=== PATIENT | male | born 1965 | race Caucasian/White ===

== ENCOUNTER → 2017-08-12 | Outpatient (CLI) | payer MEDICAID ==
[~2017-08-12] MED LIST: AMIT-108 PO; ATOR40TA69 PO; FENO160T11 PO; LISI-374 PO; LOVAZA1PT PO; METF-411 PO; METF-421 PO; METO-253 PO; METO-257 PO; OMEP-137 PO; SITA100T PO; [UNRECOGNIZED DRUG - OTHER]
[2017-08-12 11:32] LABS: PLATELET COUNT, AUTOMATED 453 K/uL (150-450)
[2017-08-12 11:42] LABS: LDL CHOLESTEROL 68 mg/dl
== END ==
LOC: LAB 11:08
PROVIDERS: ATTEND Nurse Practitioner Psychiatric/Mental Health
DX: E13.65 Other specified diabetes mellitus with hyperglycemia (principal); E78.5 Hyperlipidemia, unspecified; I10 Essential (primary) hypertension
CPT/HCPCS: 36415; 82040; 82247; 82310; 82374; 82435; 82465; 82565; 82947; 83036; 83718; 84075; 84132; 84155; 84295; 84443; 84450; 84460; 84478; 84520; 85025

== ENCOUNTER → 2018-07-26 | Outpatient (CLI) | payer MEDICAID ==
[~2018-07-26] MED LIST changes: -METF-411 PO; -METF-421 PO; +METF-450 PO; +METF-452 PO
[2018-07-26 16:22] LABS: PLATELET COUNT, AUTOMATED 322 K/uL (150-450)
[2018-07-26 16:33] LABS: LDL CHOLESTEROL 75 mg/dl
== END ==
LOC: LAB 15:34
PROVIDERS: ATTEND Nurse Practitioner Psychiatric/Mental Health
DX: E11.65 Type 2 diabetes mellitus with hyperglycemia (principal); E78.5 Hyperlipidemia, unspecified; I10 Essential (primary) hypertension; K21.9 Gastro-esophageal reflux disease without esophagitis
CPT/HCPCS: 36415; 82040; 82247; 82310; 82374; 82435; 82465; 82565; 82947; 83036; 83718; 84075; 84132; 84155; 84295; 84443; 84450; 84460; 84478; 84520; 85025